=== PATIENT | male | born 1955 | race Caucasian/White ===

== ENCOUNTER 2018-09-01 22:39 | Emergency (ER) | payer BC, OTHER ==
[~2018-09-01] VITALS: Ht 170.2 cm; Wt 86.4 kg
[2018-09-01] MEDS ORDERED: ASPI1TAB PO (22:46)
[2018-09-01] MEDS ORDERED: LOSA100T50 (22:46)
[2018-09-01] MEDS ORDERED: COLC1TAB13 (22:46)
[2018-09-01] MEDS ORDERED: TETRACAINE 0.5% OPHTH SOLN 4ML OS ONE (23:45)
[2018-09-01] MEDS ORDERED: FLUORESCEIN OPHTH 1 MG STRIP OS ONE (23:45)
[2018-09-02] MEDS ORDERED: CIPR0.3S OS (00:08)
[2018-09-02] MEDS ORDERED: CIPROFLOXACIN 0.3% OPHTH SOLN 2.5ML OS ONE (00:15)
[2018-09-02 00:21] VITALS: BP 144/75
== END 2018-09-02 00:30 | disposition home or self-care (01) ==
LOC: M ED 22:39
DX: S05.02XA Injury of conjunctiva and corneal abrasion without foreign body, left eye, initial encounter (principal); X58.XXXA Exposure to other specified factors, initial encounter; Y92.89 Other specified places as the place of occurrence of the external cause; I10 Essential (primary) hypertension; Z79.82 Long term (current) use of aspirin

== ENCOUNTER → 2020-08-31 | Outpatient (CLI) | payer MEDICARE ==
[~2020-08-31] MED LIST: ASPI81TA26 PO; CIPR0.3S6 OS; COLC0.6T47; LOSA100T50
--- NOTE | 2020-08-31 09:15 | REP ---
INDICATION: HTN,FATIGUE,WELLNESS EXAM / LABS COMPARISON: 10/27/2010 TECHNIQUE: PA and lateral. FINDINGS: The mediastinum and cardiac silhouette are normal. The lung pelayo are clear and without acute consolidation, effusion, or pneumothorax. The skeletal structures are intact and normal. IMPRESSION: No acute cardiopulmonary process. <Electronically signed by Dhaval Coulter > 08/31/20 0911
[2020-08-31 09:38] LABS: HEMATOCRIT 40.6 % (42.0-52.0); HEMOGLOBIN 13.5 g/dl (13.5-17.5); MEAN CORPUSCULAR HEMOGLOBIN 31.8 pg (27.0-33.0); MEAN CORPUSCULAR HGB CONC 33.3 g/dl (32.0-36.5); MEAN CORPUSCULAR VOLUME 95.8 fl (80.0-96.0); PLATELET COUNT, AUTOMATED 310 10^3/uL (150-450); RED BLOOD COUNT 4.24 10^6/uL (4.30-6.10); WHITE BLOOD COUNT 6.7 10^3/uL (4.0-10.0)
--- NOTE | 2020-08-31 10:01 | ECGEPIP ---
[facility] Test Date: 2020-08-31 Pat Name: AIDEN MOLINA Department: Room: - Gender: Male Country Printer: marty : 1955 Requested By: Satnam Hubbard Order Number: [id number] Reading MD: Iqra Guerrero Measurements Intervals [place] Rate: 78 P: 62 OR: 152 QRS: -9 QRSD: 86 T: 4 QT: 366 QTc: 417 Interpretive Statements Sinus rhythm PAC Inferior infarct , age undetermined NO PRIOR Electronically Signed on 08-31-2020 10:00:43 EST by Iqra Guerrero
[2020-08-31 10:20] LABS: ALBUMIN 3.9 GM/DL (3.2-5.2); ALT/SGPT 44 U/L (12-78); BILIRUBIN,TOTAL 0.4 MG/DL (0.2-1.0); BLOOD UREA NITROGEN 13 MG/DL (7-18); CALCIUM LEVEL 9.1 MG/DL (8.8-10.2); CARBON DIOXIDE LEVEL 27 MEQ/L (21-32); CHLORIDE LEVEL 109 MEQ/L (98-107); CHOLESTEROL LEVEL 179 MG/DL (<200); CHOLESTEROL RISK RATIO 5.593 (<5); GLOMERULAR FILTRATION RATE > 60.0 (>49); GLUCOSE, FASTING 111 MG/DL (70-100); HDL CHOLESTEROL 32 MG/DL (>40); LDL CHOLESTEROL 82 MG/DL (<100); NON-HDL-C 147 MG/DL; PROSTATIC SPECIFIC AG MONITOR 3.31 NG/ML (< 4.00); SODIUM LEVEL 141 MEQ/L (136-145); TESTOSTERONE 593 NG/DL (241-827); TOTAL PROTEIN 6.9 GM/DL (6.4-8.2); TRIGLYCERIDES LEVEL 323 MG/DL (<150)
== END ==
LOC: M LAB 08:41
PROVIDERS: ATTEND Family Medicine
DX: Z00.00 Encounter for general adult medical examination without abnormal findings (principal); Z79.899 Other long term (current) drug therapy

== ENCOUNTER → 2023-01-24 | Outpatient (CLI) | payer MEDICARE ==
[~2023-01-24] MED LIST changes: +CIPR0.3S37 OS; -CIPR0.3S6 OS; +LOSA100T46; -LOSA100T50
== END ==
LOC: M PLAIMG 08:46
PROVIDERS: ATTEND Family Medicine
DX: M25.561 Pain in right knee (principal); M10.9 Gout, unspecified; M17.11 Unilateral primary osteoarthritis, right knee

== ENCOUNTER 2024-06-26 10:07 | Observation (INO) | payer MEDICARE ==
[~2024-06-26] VITALS: Ht 170.2 cm; Wt 96.8 kg
[~2024-06-26 10:07] MED LIST changes: -COLC0.6T47; +COLC0.6T47 PO; -LOSA100T46; +LOSA100T46 PO
[2024-06-26] MEDS ORDERED: ISOVUE-370 76% 100ML VIAL As Ordered ONE (10:29)
[2024-06-26 11:01] LABS: BASO # 0.1 10^3/uL (0.0-0.2); BASO % 0.7 % (0.0-1.0); EOS # 0.2 10^3/uL (0.0-0.5); EOS % 2.9 % (0.0-3.0); HEMATOCRIT 50.3 % (42.0-52.0); LYMPH # 1.4 10^3/uL (1.5-5.0); LYMPH % 17.1 % (24.0-44.0); MEAN CORPUSCULAR HEMOGLOBIN 32.4 pg (27.0-33.0); MEAN CORPUSCULAR HGB CONC 34.4 g/dl (32.0-36.5); MEAN CORPUSCULAR VOLUME 94.2 fl (80.0-96.0); MONO # 0.5 10^3/uL (0.0-0.8); MONO % 5.9 % (2.0-8.0); NEUTROPHILS # 5.8 10^3/uL (1.5-8.5); NEUTROPHILS % 72.7 % (36.0-66.0); PLATELET COUNT, AUTOMATED 243 10^3/uL (150-450); RED BLOOD COUNT 5.34 10^6/uL (4.30-6.10)
[2024-06-26 11:04] LABS: HEMOGLOBIN 17.3 g/dl (13.5-17.5)
[2024-06-26 11:08] LABS: INR 1.03; PARTIAL THROMBOPLASTIN TIME 32.6 SECONDS (24.8-34.2); PROTHROMBIN TIME 13.8 SECONDS (12.5-14.5)
[2024-06-26 11:16] LABS: ETHYL ALCOHOL (ETHANOL) < 0.003 % (0.000-0.010)
[2024-06-26 11:18] LABS: ALBUMIN 4.3 G/DL (3.2-5.2); ALKALINE PHOSPHATASE 85 U/L (40-129); ALT/SGPT 28 U/L (7.0-40); AST/SGOT 20 U/L (<34); BILIRUBIN,DIRECT 0.2 MG/DL (<0.4); BILIRUBIN,TOTAL 0.6 MG/DL (0.3-1.2); BLOOD UREA NITROGEN 13 MG/DL (9-23); CALCIUM LEVEL 9.8 MG/DL (8.3-10.6); CARBON DIOXIDE LEVEL 26 MMOL/L (20-31); CHLORIDE LEVEL 102 MMOL/L (98-107); CREATININE FOR GFR 1.14 MG/DL (0.70-1.30); GLOMERULAR FILTRATION RATE > 60.0 (>42); GLUCOSE, FASTING 126 MG/DL (74-106); POTASSIUM SERUM 3.9 MMOL/L (3.5-5.1); SALICYLATE LEVEL < 3.0 MG/DL (<30); SODIUM LEVEL 139 MMOL/L (136-145); TOTAL PROTEIN 7.4 G/DL (5.7-8.2)
[2024-06-26 11:20] LABS: THYROID STIMULATING HORMONE 2.243 uIU/ML (0.55-4.78)
[2024-06-26] MEDS ORDERED: VITA500045 PO (11:54)
[2024-06-26] MEDS ORDERED: TEST200I14 IM (11:54)
[2024-06-26] MEDS ORDERED: ALLO300T2 PO (11:54)
[2024-06-26] MEDS ORDERED: HOME MED LIST COMPLETE! XX SCH (11:55)
[2024-06-26 12:43] LABS: AMPHETAMINES LEVEL URINE NEGATIVE (NEGATIVE); BARBITURATES URINE NEGATIVE (NEGATIVE); BENZODIAZEPINES URINE NEGATIVE (NEGATIVE); CANNABINOIDS URINE NEGATIVE (NEGATIVE); COCAINE METABOLITE URINE NEGATIVE (NEGATIVE); METHADONE URINE NEGATIVE (NEGATIVE); OPIATES URINE NEGATIVE (NEGATIVE); PHENCYCLIDINE URINE NEGATIVE (NEGATIVE)
[2024-06-26] MEDS: ACETAMINOPHEN 325 MG TAB PO ONE (13:25)
[2024-06-26] MEDS ORDERED: MOM 30ML SUSPENSION UDC PO PRN (15:05)
[2024-06-26] MEDS ORDERED: ACETAMINOPHEN 325 MG TAB PO PRN (15:05)
[2024-06-26 15:39] LABS: CHOLESTEROL LEVEL 192 MG/DL (<200); CHOLESTEROL RISK RATIO 5.73 (<5); HDL CHOLESTEROL 33.5 MG/DL (>40); LDL CHOLESTEROL 96.5 MG/DL (<100); NON-HDL-C 158.5 MG/DL; TRIGLYCERIDES LEVEL 310 MG/DL (<150)
[2024-06-26 15:41] LABS: HEMOGLOBIN A1c 5.4 % (4.0-6.0)
[2024-06-26 16:00] VITALS: BP 194/91; TEMP 98.1; O2SAT 92
[2024-06-26 16:30] VITALS: BP 196/92
[2024-06-26] MEDS: CLOPIDOGREL 75 MG TAB PO SCH (16:46)
[2024-06-26] MEDS: **hydrALAZINE** 50 MG TAB PO ONE (16:47)
[2024-06-26 17:00] VITALS: BP_SYST 144; BP_SYST 176; BP_DIAS 71; BP_DIAS 87; TEMP 98.1; O2SAT 92
[2024-06-26 19:54] VITALS: BP 187/99; TEMP 97.4; O2SAT 96
[2024-06-26] MEDS: DOCUSATE SODIUM 100MG CAPSULE PO SCH (20:24)
[2024-06-26] MEDS: cloNIDine 0.1MG TABLET PO ONE (20:24)
[2024-06-26 21:30] VITALS: BP 187/99; TEMP 97.4; O2SAT 96
[2024-06-26] MEDS: **hydrALAZINE** 50 MG TAB PO SCH (22:06)
[2024-06-26 23:41] VITALS: BP 132/71; TEMP 97.6; O2SAT 97
[2024-06-27 01:30] VITALS: BP 132/71; TEMP 97.6; O2SAT 97
[2024-06-27 04:05] VITALS: BP 139/77; TEMP 97.5; O2SAT 95
[2024-06-27 08:00] VITALS: BP 155/74; TEMP 96.8; O2SAT 95
[2024-06-27] MEDS: LOSARTAN 50MG TABLET PO SCH (08:51)
[2024-06-27 08:53] VITALS: BP 155/84
[2024-06-27] MEDS: ASPIRIN 81MG ENTERIC TABLET PO SCH (08:53)
[2024-06-27] MEDS: allopurinoL 300 MG TAB PO SCH (08:54)
[2024-06-27] MEDS: COLCHICINE 0.6 MG TABLET PO SCH (08:55)
[2024-06-27] MEDS: ENOXAPARIN 40MG/0.4ML SYRINGE (J1650 PER 10MG) SC SCH (08:55)
[2024-06-27] MEDS ORDERED: ASPIRIN 81MG CHEW TABLET PO SCH (09:00)
[2024-06-27] MEDS: EZETIMIBE 10MG TABLET (ZETIA) PO SCH (09:00)
[2024-06-27] MEDS ORDERED: AMLO1TAB25 PO (09:23)
[2024-06-27] MEDS ORDERED: EZET10TA21 PO (09:23)
[2024-06-27] MEDS ORDERED: CLOP75TA2 PO (09:23)
[2024-06-30] MEDS ORDERED: NORV5TAB PO (12:35)
[2024-07-01] MEDS ORDERED: VITAMIN D 50,000 UNITS CAPSULE (ERGOCALCIFEROL 1.25MG) PO SCH (09:00)
== END 2024-06-27 10:40 | disposition home or self-care (01) ==
LOC: M ED 10:07 → M ED INP 15:04 → M MS4PR 16:30
PROVIDERS: ADMIT Student in an Organized Health Care Education/Training Program; ATTEND Student in an Organized Health Care Education/Training Program
DX: G45.9 Transient cerebral ischemic attack, unspecified (principal); I10 Essential (primary) hypertension; R47.9 Unspecified speech disturbances; Z79.82 Long term (current) use of aspirin; Z79.899 Other long term (current) drug therapy; E78.1 Pure hyperglyceridemia; E55.9 Vitamin D deficiency, unspecified; E29.1 Testicular hypofunction; M10.9 Gout, unspecified
CPT/HCPCS: 70450; 70496; 70498; 70551; 71045; 80047; 80048; 80061; 80076; 80143; 80307; 82077; 82140; 83036; 84443; 85025; 85610; 85730; 86850; 86900; 86901; 93005; 93041; 93306; 94760; 97161; 97530; 99291; 99292; G0378; Q9967

== ENCOUNTER → 2025-02-17 | Outpatient (REF) | payer MEDICARE ==
[~2025-02-17] MED LIST changes: +ALLO300T2 PO; +AMLO1TAB25 PO; +CLOP75TA2 PO; +ERGO125013 PO; +EZET10TA21 PO; +NORV5TAB PO; +TEST200I14 IM
== END ==
LOC: M LAB REF 17:46
PROVIDERS: ATTEND Internal Medicine
DX: M10.9 Gout, unspecified (principal); Z82.49 Family history of ischemic heart disease and other diseases of the circulatory system